=== PATIENT | male | born 1965 | race American Indian/Alaskan Native ===

== ENCOUNTER 2017-08-11 11:39 | Day surgery (SDC) | payer OTHER ==
[2017-08-06 09:08] VITALS: BMI 24.1
[2017-08-11] MEDS: ceFAZolin 1 gm in NS 1 GM/100 ML BAG IVPB ONE ×2 (13:35→13:55)
[2017-08-11] MEDS ORDERED: Lidocaine Hydrochloride 0 ML INJ ONE (13:35)
[2017-08-11] MEDS ORDERED: Midazolam 2 MG/2 ML VIAL ONE (13:36)
[2017-08-11] MEDS ORDERED: Propofol 10 mg/ml Inj (20 ML) ONE (13:36)
[2017-08-11] MEDS: Bupivacaine HCl 0.25% PF (30 ml) Inj ONE ×2 (14:00→14:10)
[2017-08-11] MEDS ORDERED: Oxycodone/Acetaminophen 5/325 mg Tab PO PRN (14:16)
[2017-08-11] MEDS ORDERED: Succinylcholine Chloride 20 mg/ml Syr (5 ml) IV ONE (15:06)
[2017-08-11 15:17] VITALS: O2SAT 100
[2017-08-11 16:09] VITALS: RESP 16
[2017-08-11 16:47] VITALS: BP 130/74; PULSE 60; TEMP 97.9
--- NOTE | 2017-08-12 01:34 | OP ---
PROCEDURE DATE: 08/11/2017 PREOPERATIVE DIAGNOSIS: Soft tissue tumor of the forehead. POSTOPERATIVE DIAGNOSIS: Soft tissue tumor of the forehead. PROCEDURE: Excision of 4 cm soft tissue tumor of the forehead, scalp with repair of the blood vessel and tissue transfer closure. SURGEON: Geronimo Vizcaino MD ANESTHESIA: General. ESTIMATED BLOOD LOSS: 20 mL. POSTOPERATIVE CONDITION: Stable. DESCRIPTION OF PROCEDURE: The patient was taken to the operating room, general anesthesia was administered. The scalp of the forehead was prepped and draped. Multiple incision was made surrounding the mass. It was dissected free down to the scalp aponeurosis and completely removed. Bleeding was controlled using the Bovie. was repaired. The wound was irrigated with saline and generous tissue flaps were raised, and a full thickness advancement flap closure was performed utilizing counter incisions with multiple layers of Monocryl and glue. The patient tolerated the procedure well, returned to recovery room in stable condition. Geronimo Vizcaino MD
== END 2017-08-11 16:55 | disposition home or self-care (01) ==
LOC: C.SDS 11:39
PROVIDERS: ATTEND Surgery
DX: D17.0 Benign lipomatous neoplasm of skin and subcutaneous tissue of head, face and neck (principal)
CPT/HCPCS: 11444; 88307; J0690; J2250; J2704; J3010